=== PATIENT | male | born 1950 | race African-American/Black ===

== ENCOUNTER → 2019-12-13 | Day surgery (SDC) | payer OTHER ==
[~2019-12-13] MED LIST: ACETAMINOPHEN 325 MG TABLET PO PRN; ALBUTEROL SULFATE 2.5 MG/3 ML NEBU. NEB PRN; ASPI-630 PO; ATOR10TA60 PO; ATROPINE 0.5 MG/5 ML DISP.SYRIN. IV PRN; BALANCED SALT IRRIG OPHTH SOLN 15 ML BOTTLE. IRR ONE; CATARACT OPHTH GEL 0.5 ML SYRINGE. OD ONE; CHONDROIT-SOD-HYALURONATE KIT. OD ONE; CITA10TA4 PO; EPINEPHrine AMPULE 0.5 MG in BALANCED SALT IRRIG SOLN PLUS 500 ML IO ONE; ERYTHROMYCIN 0.5% OPHTH OINTMENT 1GM TUBE. OD ONE; ERYTHROMYCIN 0.5% OPHTH OINTMENT 1GM TUBE. ONE; GLIP5TAB10 PO; HYALURONIDASE 75UNITS in LIDOCAINE 2% PF OPHTH 10 ML SYRINGE. OD ONE; KETOROLAC TROMETHAMINE 0.5% OPHTH SOLUTION BOTTLE. OD SCH; KETOROLAC TROMETHAMINE 0.5% OPHTH SOLUTION BOTTLE. ONE; LISI2.5T PO; METF500T16 PO; MIDAZOLAM HCL PF 2 MG/2 ML VIAL. IV PRN; MOXIFLOXACIN 0.5% OPHTH SOLUTION 3ML BOTTLE. OD SCH; PHENOL ORAL SPRAY 177ML BOTTLE. MM PRN; POVIDONE-IODINE 5% OPHTH SOLUTION 30ML BOTTLE. OD ONE; PROP10TA PO; SIME80TA14 PO; TETRACAINE 0.5% OPHTH SOLUTION 4ML BOTTLE. OD ONE; TETRACAINE 0.5% OPHTH SOLUTION 4ML BOTTLE. OU ONE; diazePAM 5 MG TABLET ONE; diphenhydrAMINE 50 MG/ML VIAL IV PRN; prednisoLONE ACETATE 1% OPHTH SUSPENSION 5ML BOTTLE. OD SCH; prednisoLONE ACETATE 1% OPHTH SUSPENSION 5ML BOTTLE. ONE
[2019-12-13] MEDS: MOXIFLOXACIN 0.5% OPHTH SOLUTION 3ML BOTTLE. OD SCH ×3 (07:32→07:42)
--- NOTE | 2019-12-13 08:58 | PDOC4 ---
CATARACT Operative Report DATE DATE: 12/13/19 TIME: 08:56 Operation Performed Operative Report Name: Sulaiman Salinas Operation Date: @TD@ Preoperative Diagnosis: 1. Senile cataract, RIGHT: eye Postoperative Diagnosis: 1. Senile cataract, RIGHT: eye. Operation: 1. Phacoemulsification with posterior chamber intraocular lens implant. Surgeon: Janneth Locke D.O. Anesthesia: Local with monitored anesthesia care. Description of Operation: With cardiac monitoring and intravenous sedation, the patient received peribulbar anesthesia in the holding area. Pressure was applied to the eye with a [place] balloon for approximately 10 minutes. The patient was taken to the operating room and placed in a supine position. The periorbital region was prepped and draped in the usual sterile fashion. A lid speculum was placed between the eyelids. The patient was positioned under the microscope. A temporal clear corneal incision was made with a keratome. Viscoelastic was then injected into the eye. A side port incision was made three clock hours to the left of the clear corneal incision. A cystotome and capsular forceps were used to make a continuous tear capsulorhexus. Patient was noted to have an un usual anterior zonular appearance with the zonules attaching most closer to the central anterior capsule than normal. This required a smaller than normal capsulorhexus. Hydrodissection was performed with balanced salt solution. The phacoemulsification needle was placed into the eye and the cataract was removed. The remaining cortical material was removed with irrigation and aspiration. The posterior capsule was noted to be clean and intact. Viscoelastic was again injected into the eye, inflating the posterior capsular bag. A foldable intraocular lens was then injected into the eye, unfolding as desired, and positioned in the capsular bag. The viscoelastic was aspirated from the eye. The wound edges were hydrated with balanced salt solution. There were no wound leaks. Viscoelastic was injected over the side port and clear corneal incisions. One drop of Vigamox and one drop of prednisolone acetate were instilled into the eye. The lid speculum was removed and a pressure dressing with a Carrillo shield was placed over the eye. The patient was taken to the recovery room in good condition. RODGER LOCKE DO Dec 13, 2019 08:58
[2019-12-13 09:05] VITALS: BP 132/83
== END | disposition home or self-care (01) ==
LOC: SURG 06:35 → EEVIPCON 08:00
PROVIDERS: ATTEND Ophthalmology
DX: H25.11 Age-related nuclear cataract, right eye (principal); I10 Essential (primary) hypertension; E78.00 Pure hypercholesterolemia, unspecified; E11.9 Type 2 diabetes mellitus without complications; Z79.84 Long term (current) use of oral hypoglycemic drugs
CPT/HCPCS: 66984; 82947; J0171; V2632